=== PATIENT | male | born 1995 | race Caucasian/White ===

== ENCOUNTER 2019-09-05 15:33 | Outpatient (CLI) | payer OTHER, SELFPAY ==
--- NOTE | ~2019-09-05 | XR_ITS ---
XR_CERV2-3V_CR INDICATION: Sided neck pain. Possible injury. TECHNIQUE: 3 views of the cervical spine. FINDINGS: No prior studies for comparison. The cervical spine is visualized to the cervicothoracic junction. There is no prevertebral soft tiss ue swelling, listhesis, or loss of vertebral body height. Intervertebral disc spaces are normal. Th e osseous central canal is patent. No displaced cervical spine fractures are identified. IMPRESSION: 1. No acute osseous abnormality of the cervical spine. Reviewed, dictated and finalized at location A.
--- NOTE | ~2019-09-05 | XR_ITS ---
XR thoracic spine 3V 09/05/2019 15:58 Indication: Back pain Procedure: 3 views thoracic spine Comparison: No prior studies for comparison. Findings: There is mild dextrocurvature of the thoracic spine. Vertebral body heights are maintained. No paraspinal soft tissue abnormality. No acute fracture or traumatic malalignment. Surrounding osse ous structures within normal limits. Impression: 1: Mild dextrocurvature of the midthoracic spine. Reviewed, dictated and finalized at location A. Impression: 1: Mild dextrocurvature of the midthoracic spine.
== END 2019-09-05 15:34 | disposition home or self-care (01) ==
LOC: ANHIMG 15:40
PROVIDERS: PCP Family Medicine; Visit Provider Physician Assistant
DX: M54.9 Dorsalgia, unspecified (principal); M43.8X4 Other specified deforming dorsopathies, thoracic region
CPT/HCPCS: 72040; 72072

== ENCOUNTER 2021-01-17 13:33 | Outpatient (CLI) | payer OTHER, SELFPAY ==
--- NOTE | ~2021-01-17 | MR_ITS ---
EXAMINATION: MR cervical spine wo con DATE: 01/17/2021 14:26 INDICATION: Neck pain. TECHNIQUE: Magnetic resonance imaging (MRI) of the cervical spine was performed without intravenous c ontrast. Sequences included sagittal T2-weighted FSE, sagittal T2-weighted FS FSE, sagittal T1-weight ed FSE, axial MERGE, and axial T2-weighted FSE. COMPARISON: Cervical spine radiographs 09/05/2019 FINDINGS: Bone alignment is normal. Vertebral body heights and intervertebral disc heights are normal . The spinal cord signal intensity is normal. The following disc levels are specifically discussed: C2-C3: The disc does not extend beyond the endplate margin. There is no uncovertebral joint osteoarth ritis. There is mild bilateral facet joint osteoarthritis. There is no neural foraminal stenosis. The re is no central canal stenosis. C3-C4: The disc does not extend beyond the endplate margin. There is no uncovertebral joint osteoarth ritis. There is no facet joint osteoarthritis. There is no neural foraminal stenosis. There is no luna tral canal stenosis. C4-C5: The disc does not extend beyond the endplate margin. There is no uncovertebral joint osteoarth ritis. There is mild bilateral facet joint osteoarthritis. There is no neural foraminal stenosis. The re is no central canal stenosis. C5-C6: The disc does not extend beyond the endplate margin. There is no uncovertebral joint osteoarth ritis. There is no facet joint osteoarthritis. There is no neural foraminal stenosis. There is no luna tral canal stenosis. C6-C7: The disc does not extend beyond the endplate margin. There is no uncovertebral joint osteoarth ritis. There is mild bilateral facet joint osteoarthritis. There is no neural foraminal stenosis. The re is no central canal stenosis. C7-T1: The disc does not extend beyond the endplate margin. There is mild bilateral uncovertebral guilherme nt osteoarthritis. There is mild bilateral facet joint osteoarthritis. There is no neural foraminal s tenosis. There is no central canal stenosis. IMPRESSION: 1. Mild cervical spondylosis. Reviewed, dictated and finalized at location A.
== END 2021-01-17 13:34 | disposition home or self-care (01) ==
LOC: ANHIMG 13:34
PROVIDERS: PCP Family Medicine; Visit Provider Physician Assistant
DX: M47.892 Other spondylosis, cervical region (principal)
CPT/HCPCS: 72141

== ENCOUNTER 2021-11-12 08:35 | Emergency (ER) | payer OTHER, SELFPAY ==
--- NOTE | ~2021-11-12 | US_ITS ---
US scrotum doppler INDICATION: Right testicular pain TECHNIQUE: Testicular sonogram utilizing grayscale and color Doppler FINDINGS: The testes are normal in size and appearance. No focal lesions are seen. The right testes measures 3.8 x 1.8 x 2.6 cm centimeters, and the left testis measures 4 x 1.9 x 2.8 cm cm. There is n ormal vascular flow to both testes. The right and left epididymides appear normal. There is no varicocele or hydrocele. IMPRESSION: 1. NORMAL TESTICULAR ULTRASOUND. Reviewed, dictated and finalized at location A.
[2021-11-12 08:42] VITALS: BP 166/90; PULSE 115; RESP 18; TEMP 36.1; O2SAT 100
--- NOTE | 2021-11-12 08:53 | ED.MALEGU ---
HPI - Male Genitourinary General Chief complaint: Urogenital-Male Stated complaint: Rt testicular pain Time Seen by Provider: 11/12/21 08:36 Source: RN notes reviewed History of Present Illness HPI Narrative: Patient presents emergency department from home for testicular pain. Patient states symptoms began approximately 1 week ago states that the pain is located in the right testicle and described as aching he states at that time a week ago the pain improved after he had a bowel movement but he states that it returned on Monday and has been a dull ache all week he denies anything that makes the pain better or worse he denies any fevers or chills abdominal pain nausea vomiting dysuria or any other symptoms denies any risk STD Related Data Home Medications Medication Instructions Recorded Confirmed lamotrigine 25 mg tablet mg 11/12/21 Allergies Allergy/AdvReac Type Severity Reaction Status Date / Time No Known Allergies Allergy Verified 11/12/21 08:47 Review of Systems Review of Systems: Gen.: Denies fevers or chills Respiratory: Denies shortness of breath CV: Denies chest pain GI: Denies abdominal pain nausea, emesis or diarrhea see HPI a Musculoskeletal: Denies back pain or muscle pain Neuro: Denies numbness, tingling, weakness or focal weakness Skin: Denies rash Except as documented, all other systems reviewed and negative [facility] Past Medical History Medical History (Updated 11/12/21 @ 10:12 by Charles Leblanc DO) Generalized anxiety disorder Surgical History Surgical History History of tonsillectomy (~2015) Social History Social History Alcohol intake: never Drinks per week: 4 Alcohol use details: beer Substance use: never Substance use type: does not use Exam Narrative: APPEARANCE: No acute distress, nontoxic, resting in bed EYES: EOMI HEENT: Normocephalic, atraumatic, OMM RESPIRATORY: No respiratory distress Clear to auscultation bilaterally with no rhonchi wheezing or rales. CARDIOVASCULAR: Regular rate and rhythm without murmurs rubs or gallops. ABDOMINAL: Soft, nontender, nondistended, no rebound or guarding : Normal external exam circumcised male no skin lesions no scrotal swelling or erythema no tenderness left testicle tender to palpation of the right posterior testicle no hernias palpated MUSCULOSKELETAl: Moves all extremities. No clubbing, cyanosis or edema. NEURO: Awake and alert. Following commands, speech normal, no focal deficits SKIN:: Warm, dry. No rashes lesions or abrasions PSYCHIATRIC: Normal affect/mood, Course Course Emergency Course: Discussed with patient results of workup and diagnosis. Discussed need for follow-up with primary care, proper use of medication, and reasons to return to the emergency department. Patient understands and agrees to current treatment plan Vital Signs Vital signs: Vital Signs Temperature 97.0 F L 11/12/21 08:42 Pulse Rate 115 H 11/12/21 08:42 Respiratory Rate 18 11/12/21 08:42 Blood Pressure 166/90 H 11/12/21 08:42 Pulse Oximetry 100 11/12/21 08:42 Oxygen Delivery Room Air 11/12/21 08:42 Temperature 97.0 F L 11/12/21 08:42 Pulse Rate 115 H 11/12/21 08:42 Respiratory Rate 18 11/12/21 08:42 Blood Pressure 166/90 H 11/12/21 08:42 Pulse Oximetry 100 11/12/21 08:42 Oxygen Delivery Room Air 11/12/21 08:42 MDM - Male Genitourinary Lab Data Labs: Lab Results 11/12/21 Range/Units 09:19 Urine Color Yellow (Yellow) Urine Appearance Clear (Clear) Urine pH 7.5 (5.0-9.0) Ur Specific [place] 1.015 (1.001-1.035) Urine Protein 1+ H (Negative) mg/dL Urine Glucose (UA) Negative (Negative) mg/dL Urine Ketones Negative (Negative) mg/dL Ur Blood (Man) Trace-intact (Negative) Urine Nitrate Negative (Negative) Urine Bilirubin Negative (Negative)
[2021-11-12] MEDS: IBUPROFEN 600 MG TABLET PO (09:36)
[2021-11-12 09:46] LABS: Appearance Urine Clear (Clear); Bilirubin Urine Negative (Negative); Color Urine Yellow (Yellow); Glucose Urine UA Negative (Negative); Ketones Urine Negative (Negative); Leukocyte Esterase Ur Negative LEU/UL (Negative); Nitrate Urine Negative (Negative); Protein Urine 1+ mg/dL (Negative); Specific Grav Ur 1.015 (1.001-1.035); Urobilinogen Urine 0.2 mg/dL (<2.0); pH Urine 7.5 (5.0-9.0)
[2021-11-12 09:52] LABS: Add Urine Microscopic? YES; Blood Urine Trace-Intact (Negative)
[2021-11-12 09:53] LABS: Mucus Urine Rare /lpf; RBC Urine 0-2 /hpf (0-2); WBC Urine 0-3 /hpf
[2021-11-12 10:13] VITALS: BP 127/97; PULSE 80; RESP 18; O2SAT 99
== END 2021-11-12 10:31 | disposition home or self-care (01) ==
PROVIDERS: Emergency Provider Emergency Medicine; PCP Family Medicine
DX: N50.811 Right testicular pain (principal); F41.1 Generalized anxiety disorder
CPT/HCPCS: 76870; 81001; 93976; 99284; A9270

== ENCOUNTER 2022-09-15 08:24 | Outpatient (CLI) | payer OTHER, MEDICAID, SELFPAY ==
--- NOTE | ~2022-09-15 | US_ITS ---
Limited Abdominal Sonogram: Real-time sonographic imaging of the right upper quadrant was performed. Clinical History: Abnormal levels of serum enzymes Findings: The liver appears normal with no evidence of mass lesion or bile duct dilatation. Main por alessio vein demonstrates normal direction of flow. The gallbladder is well distended, and appears normal with no evidence of gallstone or wall thickening. The common bile duct measures 2 mm. The pancreas is obscured by bowel gas shadowing. Right renal cysts are incidentally partially imaged. Impression: No significant abnormality seen. Reviewed, dictated and finalized at location M. Impression: No significant abnormality seen.
== END 2022-09-15 08:25 | disposition home or self-care (01) ==
PROVIDERS: PCP Family Medicine; Referring Provider Nurse Practitioner Family; Visit Provider Family Medicine
DX: R74.8 Abnormal levels of other serum enzymes (principal)
CPT/HCPCS: 76705; 87045; 87177; 87209; 87427

== ENCOUNTER 2022-11-10 01:30 | Day surgery (SDC) | payer OTHER, MEDICAID, SELFPAY ==
[2022-11-01 11:48] VITALS: BMI 22.4
[2022-11-10 08:07] VITALS: BP 143/85; PULSE 92; RESP 18; TEMP 36.8; O2SAT 100; BMI 22.9
[2022-11-10] MEDS: LACTATED RINGERS 1,000 ML 150 ML IV CONT (08:20)
--- NOTE | 2022-11-10 08:40 | P.PNAN_ITS ---
Anes - Initial Pre Proc Eval Procedure: Operation Date: 11/10/22 09:00 Proposed Procedures p Colonoscopy - Davian Kinney MD Date/Time: 11/10/22 08:40 Surgeon: Davian Kinney MD Pre Op Diagnosis: abdominal pain, hemorrhage of anus and rectum Patient Data Age: 27 Gender: M Height: 1.7 m Weight: 66.5 kg Last Vital Signs Temp 98.3 F 11/10/22 08:07 Pulse 92 11/10/22 08:07 Resp 18 11/10/22 08:07 BP 143/85 H 11/10/22 08:07 Pulse Ox 100 11/10/22 08:07 O2 Del Method Room Air 11/10/22 08:07 Allergies Allergy/AdvReac Type Severity Reaction Status Date / Time No Known Allergies Allergy Verified 11/10/22 08:05 Home Medications Medication Instructions Recorded Confirmed Type alprazolam 0.25 mg tablet (Xanax) 0.25 mg PO TID PRN anxiety #30 tabs 06/20/22 11/10/22 Rx metoprolol succinate 25 mg 25 mg PO DAILY #90 tabs 10/05/22 11/10/22 Rx tablet,extended release 24 hr Patient hx anesthesia problems: none Family hx anesthesia problems: none Results Review: All pre-operative results and documents have been reviewed as part of the pre- operative evaluation. [facility] Past Medical History Medical History (Updated 09/22/22 @ 13:53 by YOBANY Mathew) External hemorrhoid Generalized anxiety disorder Rectal bleeding Surgical History Surgical History History of tonsillectomy (~2015) Social History Social History (Updated 09/07/22 @ 14:22 by Roya Hardy MA) Years smoked: 2 Smoking status: Former smoker Tobacco type: cigarettes and e-cigarettes/vaping Alcohol intake: never Drinks per week: 4 Alcohol use details: beer Substance use: never Substance use type: does not use Lack of Transportation: No Lack of Food: Never True Current Housing: I Have Housing Concerned About Future Housing: No Difficulty Paying Gas/Electric Bills: No Difficulty Paying for Meds: No Currently Unemployed: No Education: Bachelor's Degree Difficulty w/ Childcare or Family Care: No Living arrangements: with family Occupation/Education: student Gender identity (if verbalized by the patient): Male Spiritual care concerns: No Anes - Eval Final PreProcedure Day of Procedure 11/10/22 08:40 Patient weight: normal Heart: regular rate and rhythm Lungs: clear to auscultation Airway: Mallampati scale class II Neurological: alert and oriented Last oral intake: >/= 8 hours ASA classification: II Emergent: no Anesthetic plan: proceed Anesthesia type and monitoring: general GIVS and standard monitoring Results Review: All pre-operative results and documents have been reviewed as part of the pre- operative evaluation. Informed Consent: The patient's anesthetic plan and its attendant risks and benefits were discussed with the patient/family/POA. Questions were solicited and answers provided to the satisfaction of the patient/family/POA.
--- NOTE | 2022-11-10 08:51 | PM.HPGS ---
History of Present Illness History of Present Illness Consent: Risks, benefits, and alternatives have been discussed and questions answered. Patient agrees to proceed with procedure. Chief complaint: abdominal pain, hemorrhage of anus and rectum Narrative: Jaime Mueller is a 27 year old male Presents for colonoscopy. Patient reports that 1-1/2 months ago pain he experienced episode of abdominal pain with profuse diarrhea that became somewhat bloody. He had lingering abdominal pain briefly for part of the next week. Patient has previously had episodes of spontaneous profuse diarrhea that resolved after 1 episode. He has never had bleeding till this 1 episode occurred. He has had no bleeding since then. Currently he has no abdominal pain is bowel habits returned to normal. Family history is noncontributory. Review of Systems Review of Systems: Review of systems noncontributory. [facility] Past Medical History Medical History (Updated 09/22/22 @ 13:53 by YOBANY Mathew) External hemorrhoid Generalized anxiety disorder Rectal bleeding Surgical History Surgical History History of tonsillectomy (~2016) Social History Social History (Updated 09/07/22 @ 14:22 by Roya Hardy MA) Years smoked: 2 Smoking status: Former smoker Tobacco type: cigarettes and e-cigarettes/vaping Alcohol intake: never Drinks per week: 4 Alcohol use details: beer Substance use: never Substance use type: does not use Lack of Transportation: No Lack of Food: Never True Current Housing: I Have Housing Concerned About Future Housing: No Difficulty Paying Gas/Electric Bills: No Difficulty Paying for Meds: No Currently Unemployed: No Education: Bachelor's Degree Difficulty w/ Childcare or Family Care: No Living arrangements: with family Occupation/Education: student Gender identity (if verbalized by the patient): Male Spiritual care concerns: No Meds Home Medications and Allergies Home Medications Medication Instructions Recorded Confirmed Type alprazolam 0.25 mg tablet (Xanax) 0.25 mg PO TID PRN anxiety #30 tabs 06/20/22 11/10/22 Rx metoprolol succinate 25 mg 25 mg PO DAILY #90 tabs 10/05/22 11/10/22 Rx tablet,extended release 24 hr Allergies Allergy/AdvReac Type Severity Reaction Status Date / Time No Known Allergies Allergy Verified 11/10/22 08:05 Vital Signs Vital Signs - 24 hr 11/10/22 08:07 Temperature 98.3 F Pulse Rate 92 Respiratory Rate 18 Blood Pressure 143/85 H Pulse Oximetry 100 Oxygen Delivery Room Air Exam Narrative: Physical exam reveals patient to be alert. Vital signs stable. HEENT exam is unremarkable. Patient is anicteric. Lungs are clear to auscultation and percussion. Heart is without murmur or extra sounds. Abdominal exam bowel sounds are present soft nontender with no hepatosplenomegaly. Digital external rectal exam is normal. Assessment and Plan Assessment and plan (1) Rectal bleeding: Code(s): K62.5 - Hemorrhage of anus and rectum Status: Acute Assessment and Plan: Patient with episode rectal bleeding and abdominal pain that lasted for several days. Plan for colonoscopy to assess for organic disease. High-fiber diet advised. Other recommendations may be given after endoscopy.
[2022-11-10 09:19] VITALS: BP 94/53; PULSE 82; RESP 16; O2SAT 93
[2022-11-10 09:29] VITALS: BP 115/66; PULSE 87; RESP 16; O2SAT 96
[2022-11-10 09:39] VITALS: BP 126/62; PULSE 77; RESP 18; O2SAT 100
== END 2022-11-10 09:51 | disposition home or self-care (01) ==
PROVIDERS: PCP Family Medicine; Visit Provider Internal Medicine Gastroenterology
PROC: 0DJD8ZZ Inspection of Lower Intestinal Tract, Via Natural or Artificial Opening Endoscopic (ICD-10-PCS; CPT 45378; principal; 2022-11-10 09:00)
DX: K64.8 Other hemorrhoids (principal); F41.1 Generalized anxiety disorder; Z87.891 Personal history of nicotine dependence
CPT/HCPCS: 45378; J2001; J2405; J2704; J3010; J7120

== ENCOUNTER 2023-08-21 16:11 | Outpatient (CLI) | payer OTHER, SELFPAY ==
--- NOTE | ~2023-08-21 | CT_ITS ---
Non-contrast CT scan of the Abdomen and Pelvis Clinical indication: Renal cyst Technique: 2.5 mm axial scans were obtained through the abdomen and pelvis without intravenous or or al contrast. Dose reduction technique was used on this scan by utilizing automated exposure control a nd iterative reconstruction technique. The dose-length product (DLP) was 315.85 mGy-cm. Findings: Images through the lung bases reveal no abnormalities. There are innumerable cysts involving both kidneys, including probable small hyperdense cysts, consis tent with autosomal dominant polycystic kidney disease. Right kidney measures approximately 7.4 x 5.9 x 13.6 cm in size. Left kidney measures approximately 8.9 x 7.5 x 15.2 cm in size. Probable tiny mahsa ateral nonobstructing renal stones present. The liver, spleen, pancreas, gallbladder, and adrenals appear normal. There is no aortic aneurysm. There is no evidence of bowel obstruction. Images through the pelvis were performed. There is no evidence of ascites or lymphadenopathy. Urinary bladder unremarkable. No pelvic mass evident. Impression: Findings consistent with autosomal dominant polycystic kidney disease. Please see details above. Reviewed, dictated and finalized at location M. Impression: Findings consistent with autosomal dominant polycystic kidney disease. Please s ee details above.
== END 2023-08-21 16:12 | disposition home or self-care (01) ==
LOC: ANHIMG 16:12
PROVIDERS: PCP Family Medicine; Visit Provider Internal Medicine Nephrology
DX: N28.1 Cyst of kidney, acquired (principal)
CPT/HCPCS: 74176

== ENCOUNTER 2023-12-04 10:37 | Outpatient (CLI) | payer OTHER, SELFPAY ==
--- NOTE | ~2023-12-04 | US_ITS ---
EXAMINATION: US art doppler w press UE BI DATE: 12/04/2023 13:54 CDT INDICATION: Arm pain TECHNIQUE: Segmental pressures and plethysmographic and Doppler waveforms of the upper extremity terry sweetie were obtained. COMPARISON: None. FINDINGS: Right and left brachial artery pressures of 108 mm Hg and 120 mm Hg, respectively, are concordant (no rmal difference <= 30 mmHg). The right finger:brachial systolic pressure ratio is 0.8 (normal > 0.8). Segmental pressure gradients are normal. Arterial Doppler waveforms are biphasic (normal upstroke < 0.2 s). The left finger:brachial systolic pressure ratio is 0.64. Segmental pressure gradients are increased distal to the wrist. Arterial Doppler waveforms are biphasic. IMPRESSION: 1. Diminished left finger brachial systolic pressure ratio consistent with peripheral arterial diseas e. Reviewed, dictated and finalized at location B. IMPRESSION: 1. Diminished left finger brachial systolic pressure ratio consistent with jose pheral arterial disease.
== END 2023-12-04 10:38 | disposition home or self-care (01) ==
LOC: ANHIMG 10:38
PROVIDERS: PCP Family Medicine; Visit Provider Family Medicine
DX: M79.603 Pain in arm, unspecified (principal)
CPT/HCPCS: 93923

== ENCOUNTER 2024-01-03 10:29 | Outpatient (CLI) | payer OTHER, SELFPAY ==
--- NOTE | 2024-01-03 10:53 | EST_ITS ---
Patient Info Name: Jaime Mueller Age: 28 years : 1995 Gender: Male Ht: 67 in Wt: 140 lbs BSA: 1.73 m2 HR: 111 bpm BP: 133 / 74 mmHg Exam Date: 01/03/2024 10:56 AM Exam Location: [facility] Patient Status: Outpatient Admit Date: 01/03/2024 Staff Ordering Physician: Jasmin Shelton Attending Provider: Jasmin Shelton Exercise Technologist: Vanessa Aleman THOMAS Exercise Physician: Rocky Gongora DO Exam Type: CA stress test treadmill Study Info A treadmill exercise stress test was performed. Summary 1. 1. Negative Domenico exercise stress test for ischemic ST changes by ECG criteria. 2. 2. Reduced functional capacity, achieving 10 METs of workload due to HR nearing maximum rate. 3. 3. Rapid HR response to exercise. 4. 4. Appropriate HR recovery at 1 minute post exercise. 5. 5. No imaging with stress testing. 6. 6. Patient informed of the above results. Protocol: Domenico Stress ECG Details Stage: REST Duration (min): 4 min : 56 sec Speed (mph): 0.0 Grade (%): 0 HR (bpm): 112 SBP (mmHg): 133 DBP (mmHg): 74 METS: --- Stage: REST Duration (min): 13 min : 30 sec Speed (mph): 0.0 Grade (%): 0 HR (bpm): 130 SBP (mmHg): 133 DBP (mmHg): 74 METS: --- Stage: STAGE 1 Duration (min): 1 min : 0 sec Speed (mph): 1.7 Grade (%): 10 HR (bpm): 134 SBP (mmHg): 133 DBP (mmHg): 74 METS: --- Stage: STAGE 1 Duration (min): 2 min : 0 sec Speed (mph): 1.7 Grade (%): 10 HR (bpm): 144 SBP (mmHg): 133 DBP (mmHg): 74 METS: --- Stage: STAGE 1 Duration (min): 3 min : 0 sec Speed (mph): 1.7 Grade (%): 10 HR (bpm): 145 SBP (mmHg): 163 DBP (mmHg): 65 METS: --- Stage: STAGE 2 Duration (min): 1 min : 0 sec Speed (mph): 2.5 Grade (%): 12 HR (bpm): 156 SBP (mmHg): 163 DBP (mmHg): 65 METS: --- Stage: STAGE 2 Duration (min): 2 min : 0 sec Speed (mph): 2.5 Grade (%): 12 HR (bpm): 161 SBP (mmHg): 152 DBP (mmHg): 66 METS: --- Stage: STAGE 2 Duration (min): 3 min : 0 sec Speed (mph): 2.5 Grade (%): 12 HR (bpm): 163 SBP (mmHg): 152 DBP (mmHg): 66 METS: --- Stage: STAGE 3 Duration (min): 1 min : 0 sec Speed (mph): 3.4 Grade (%): 14 HR (bpm): 179 SBP (mmHg): 155 DBP (mmHg): 68 METS: --- Stage: STAGE 3 Duration (min): 2 min : 0 sec Speed (mph): 3.4 Grade (%): 14 HR (bpm): 180 SBP (mmHg): 155 DBP (mmHg): 68 METS: --- Stage: STAGE 3 Duration (min): 2 min : 0 sec Speed (mph): 3.4 Grade (%): 14 HR (bpm): 179 SBP (mmHg): 155 DBP (mmHg): 68 METS: --- Stage: RECOVERY Duration (min): 0 min : 59 sec Speed (mph): 0.0 Grade (%): 0 HR (bpm): 165 SBP (mmHg): 166 DBP (mmHg): 64 METS: --- Stage: RECOVERY Duration (min): 1 min : 59 sec Speed (mph): 0.0 Grade (%): 0 HR (bpm): 150 SBP (mmHg): 166 DBP (mmHg): 64 METS: --- ---------
== END 2024-01-03 10:30 | disposition home or self-care (01) ==
LOC: ANHCARD 10:31
PROVIDERS: PCP Family Medicine; Visit Provider Nurse Practitioner
DX: R00.2 Palpitations (principal)
CPT/HCPCS: 93017